=== PATIENT | female | born 1990 | race Caucasian/White ===

== ENCOUNTER → 2020-10-16 13:18 | Outpatient (CLI) | payer BC, SELFPAY ==
--- NOTE | 2020-10-16 13:19 | US_ITS ---
PROCEDURE: US TRANSVAGINAL CLINICAL INDICATION: US T/V- DUB COMPARISON: No exams were available for comparison FINDINGS: Normal size uterus measuring 9.18cm in length 5.16cm in height and 6.40cm in width but shows rather homogeneous echogenicity. The endometrial echo measures 1.3 cm and somewhat echogenic and is upper limits of normal for the secretory phase. The left ovary is normal in size and shows a dominant cyst with internal echoes measuring 1.6 x 1 point by 1.8 cm. The left ovary is normal in size and shows multiple tiny follicular cysts. There is no cul-de-sac fluid IMPRESSION: Findings as described no definite acute pathology identified Dictated by: Dr. Kirk Rojo MD 10/16/2020 15:37 Dr. Kirk Rojo MD in [place] 10/16/2020 15:37
== END ==
PROVIDERS: PCP Pediatrics; Visit Provider Obstetrics & Gynecology
DX: N93.8 Other specified abnormal uterine and vaginal bleeding (principal)
CPT/HCPCS: 76830

== ENCOUNTER → 2020-11-11 10:24 | Outpatient (CLI) | payer BC, SELFPAY ==
[2020-11-11 10:59] LABS: Basophils # 0.1 K/mm3 (0-0.2); Eosinophils # 0.1 K/mm3 (0.0-0.4); Hematocrit 41.9 % (37.0-47.0); Hemoglobin 13.3 g/dL (12.2-16.2); Lymphocytes # 2.5 K/mm3 (0.7-4.5); Lymphocytes % 39.9 % (10-50); Mean Corpuscular HGB Conc 31.8 g/dL (31.8-35.4); Mean Corpuscular Hemoglobin 27.8 pg (27.0-31.2); Mean Corpuscular Volume 87.4 fl (81-99); Mean Platelet Volume 8.3 fl (7.4-10.4); Monocytes # 0.4 K/mm3 (0.1-1.0); Monocytes % 6.5 % (1.7-9.3); Neutrophils # 3.2 K/mm3 (1.8-7.8); Neutrophils % 50.6 % (37.0-80.0); Platelet Count 264 K/mm3 (142-424); Red Blood Count 4.79 M/mm3 (4.20-5.40); Red Cell Distribution Width 13.5 % (11.5-17.5); White Blood Count 6.4 K/mm3 (4.8-10.8)
[2020-11-11 11:11] LABS: HCG Qualitative, Serum Negative (Negative)
[2020-11-11 11:12] LABS: Chloride 106 mmol/L (98-107); Potassium 3.9 mmoL/L (3.5-5.1); Sodium 139 mmol/L (136-145)
[2020-11-11 11:14] LABS: Alanine Aminotransferase 15 U/L (12-78); Aspartate Amino Transferase 21 U/L (14-36); Blood Urea Nitrogen 11 mg/dl (7-17); Estimated Glomerular Filt Rate 97 ml/min (>60); GFR (African American) 117 ML/MIN (>60)
[2020-11-11 11:15] LABS: Albumin Level 4.3 g/dl (3.5-5.0); Albumin/Globulin Ratio 1.4 (1.1-1.8); Alkaline Phosphatase 82 U/L (38-126); Anion Gap 11.9 mEq/L (5-15); Bilirubin,Total 0.6 mg/dl (0.2-1.3); Calcium 9.5 mg/dl (8.4-10.2); Carbon Dioxide 25 mmol/L (22.0-30.0); Globulin 3.1 g/dL (1.3-3.2); Glucose 93 mg/dl (74-100); Total Protein,Serum 7.4 g/dl (6.3-8.2)
[2020-11-11 11:33] LABS: Coronavirus 19 IgG Antibody Negative (Negative); Coronavirus 19 IgM Antibody Negative (Negative)
== END ==
PROVIDERS: Visit Provider Obstetrics & Gynecology
DX: Z01.812 Encounter for preprocedural laboratory examination (principal); Z20.822 Contact with and (suspected) exposure to COVID-19; N92.0 Excessive and frequent menstruation with regular cycle; N93.8 Other specified abnormal uterine and vaginal bleeding
CPT/HCPCS: 36415; 80053; 84703; 85025; 86328

== ENCOUNTER 2020-11-14 06:25 | Day surgery (SDC) | payer BC, SELFPAY ==
[2020-11-08 15:18] VITALS: BMI 40.8
[2020-11-14] VITALS (10 sets, daily range): BP systolic 109–142; BP diastolic 59–89; PULSE 63–93; RESP 16–18; TEMP 36.1–37.4; O2SAT 95–100
--- NOTE | 2020-11-14 07:51 | P.PN_ITS ---
[facility] Anesthesia Checklist - Patient Identification Patient Identification: Arm Band - Structural Data Admitted From: Home Planned Operative Procedure/s: Hysteroscopy, D&C, Novasure Ablation Consent for Planned Operative Procedure(s) Verified: Yes Verified Documents: Surgical Consent, History and Physical - NPO Status Verified Time NPO: 00:00 - Additional verifications Anesthesia Reactions: No Hx Blood Transfusions: No Blood Transfusion Reaction: No - Airway Assessment C-Spine Mobility Assessed: Yes (mp2) TMJ Mobility Assessed: Yes Dentition: Good Dentition - Neurological Assessment Level of Consciousness: Awake, Alert - Anesthesia Plan Anesthesia Risk discussed: Yes Anesthesia Plan: Verified ASA Class: III Anesthesia Type: General [facility] History I have reviewed the patient's past medical history: Yes Medical History: Denies:: Cancer, Diabetes Mellitus Type 1, Diabetes Mellitus Type 2, Internal Pacemaker, MRSA, Seizures *Have you ever received a pneumonia vaccine?: No *Have you received a flu vaccine this season?: No Other Medical History: Denies: Blood Transfusion Reaction Anesthesia experience/problems:: nac Laterality Cases: Left: Other Other Surgeries: Yes: Other. No: Pacemaker Amputation: No Fractures: Yes (wrist) - *Social History Last grade of school completed: High school graduate Smoking Status: Never smoker Alcohol Intake: never Substance Use Type: denies use *Occupational Status:: employed Housing: house Household Members: spouse *Travel in the last 8 weeks: None Family Hx:: No significant family history
--- NOTE | 2020-11-14 09:58 | P.OP_ITS ---
Date of procedure: 11/14/20 Pre-op Diagnosis:: heavy menstrual bleeding dysfunctional uterine bleeding severe dysmenorrhea Post-op Diagnosis:: same Procedure performed:: Diagnostic hysteroscopy Novasure endometrial ablation Surgeon:: Unique Guzman MD REVENUE CYCLE SPECIALIST:: Haresh Vásquez Anesthesia: GETA Estimated blood loss (mL): 5 Operative findings:: grossly normal uterine cavity no fibroids or polyps visualized Operative note:: The patient was taken to the operating room and general anesthesia was administered. She was prepped/draped in lithotomy position. The anterior lip of the cervix was grasped with a single tooth tenaculum and the cervix was dilated with Kelly dilators of serially increasing size until the external os was able to accomodate the hysteroscope. The hysteroscope was advanced through the cervix and into the uterine cavity, which was distended with LR. Once the uterus was sufficiently distended, the cavity was evaluated and no polyps or fibroids were visualized. The hysteroscope was removed from the uterus; the uterine cavity sounded to a length of 5.5cm with a cervical length of 3.5cm. The Novasure was inserted through the cervix and expanded to fit the width of the uterus, with a width of 4.6cm. After a successful cavity assessment, the device was deployed and the endometrial ablation was completed in 85seconds. Once the device had turned off, the Novasure was removed from the uterus and the hysteroscope was reinserted into the uterine cavity. The cavity appeared diffusely cauterized. The hysteroscope was removed from the uterus and all instruments removed from the vagina. The tenaculum site was hemostatic. All sponge/lap/needle/instrument counts correct x2. Total EBL: 5 cc. The patient was taken out of lithotomy position, extubated and taken to the PACU in stable condition. Condition: stable Disposition: PACU Specimens:: none Complications:: none
--- NOTE | 2020-11-14 10:01 | P.PN_ITS ---
[facility] Anesthesia Record Part I Intake, IV Amount: 800 Estimated blood loss (mL): 5 Urine output (mL): 50 Blood Products used (#): none Blood Pressure: 142/89 SaO2: 96 Pulse Rate: 89 Respiratory Rate: 16 Temperature: 99.3 F Patient is:: Drowsy, Stable Stable to PACU at:: 09:55
--- NOTE | 2020-11-14 11:28 | P.PN_ITS ---
[facility] Anesthesia Record Part II Discharge Time: 10:25 Destination: Surgical Day Care (OP Surgery) PACU nurse assessment reviewed?: Yes Patient Condition:: Good Anesthesia Complications:: None Swallowing reflex intact?: Yes Cyanosis?: No Blood Pressure: 127/73 Pulse Rate: 77 Temperature: 97 F Mental Status: Alert & Oriented Pain level:: 5 Nausea and/or vomitting:: None Intake, IV Amount: 0
== END 2020-11-14 10:57 | disposition home or self-care (01) ==
LOC: OR 06:27
PROVIDERS: PCP Pediatrics; Visit Provider Obstetrics & Gynecology
PROC: 0U5B8ZZ Destruction of Endometrium, Via Natural or Artificial Opening Endoscopic (ICD-10-PCS; CPT 58563; principal; 2020-11-14 08:15)
DX: N92.0 Excessive and frequent menstruation with regular cycle (principal); N94.6 Dysmenorrhea, unspecified; R93.89 Abnormal findings on diagnostic imaging of other specified body structures; Z98.51 Tubal ligation status
CPT/HCPCS: 58563; 96374; J2405

== ENCOUNTER 2021-01-06 20:41 | Emergency (ER) | payer BC, SELFPAY ==
[2021-01-06 21:00] VITALS: BP 143/89; PULSE 86; RESP 21; TEMP 37; O2SAT 100; BMI 41.8
--- NOTE | 2021-01-06 21:17 | HMH.EDUTC ---
[facility] Disposition Clinical Impression: Allergic reaction Qualifiers: Encounter type: initial encounter Qualified Code(s): T78.40XA - Allergy, unspecified, initial encounter Disposition: Home, Self-Care Condition on Discharge: Good Instructions: DI for General Allergic Reactions, Diphenhydramine Additional Instructions: Look around to see if something has changed that you may have come into contact with and may be reacting too Over the counter Benadryl may help with itching and rash Follow up with your Family Doctor if you continue to have reactions Follow up with Dr Hallman for allergy testing if symptoms persist or return Straight to ER if any life threatening symptoms Prescriptions: methylPREDNISolone [Medrol 4mg tab] 4 mg PO DIRECTED #21 tab Transmission Status: Pending to Clinic Pharm[facility] Referrals: Guillermo Ibrahim [Primary Care Provider] - As needed Medical Decision Making - Kristopher Inquiry Pt receiving controlled substance: No Kristopher was queried for this patient: No Vital Signs: 01/06/21 21:00 Temperature 98.6 F Temperature Source Oral Pulse Rate [Right Brachial] 86 Respiratory Rate 21 Blood Pressure [Right Arm] 143/89 H Blood Pressure Mean [Right Arm] 107 Blood Pressure Source [Right Arm] Automatic Cuff Blood Pressure Position [Right Arm] Sitting 02 Sat by Pulse Oximetry 100 Oxygen Delivery Method Room Air Orders (Tests/Meds): ED MEDICATIONS Discontinued Medications Generic Name Dose Route Start Last Admin Trade Name Nikki PRN Reason Stop Dose Admin Diphenhydramine HCl 25 mg 01/06/21 21:17 01/06/21 21:30 Diphenhydramine 50mg/Ml Vial IM 01/06/21 21:18 25 mg ONCE ONE Administration Famotidine 20 mg 01/06/21 21:17 01/06/21 21:30 Famotidine 20mg Tablet PO 01/06/21 21:18 20 mg ONCE ONE Administration Loratadine 10 mg 01/06/21 21:17 01/06/21 21:30 Loratadine 10mg Tablet PO 01/06/21 21:18 10 mg ONCE ONE Administration Methylprednisolone Sodium Succinate 125 mg 01/06/21 21:17 01/06/21 21:30 Methylprednisolone Sod Succ 125mg Vial IM 01/06/21 21:18 125 mg ONCE ONE Administration Medical Decision Narrative: Rash on chest and wrist improving patient states that she is not itching like she was and rash is improving [facility] HPI - General Stated complaint: hives, knots, and swelling Time Seen by Provider: 01/06/21 21:17 Mode of Arrival: Ambulatory Source of Information: Patient Limitations: No Limitations Description of Symptoms (Recalled from Triage Doc. by RN): PATIENT C/O RASH/ALLERGIC REACTION. UNKNOWN CAUSE HEENT Symptoms (Recalled from RN notes): No Resp Symptoms (Recalled from RN notes): No Skin Symptoms (Recalled from RN notes): Yes MS Symptoms (Recalled from RN notes): No Functional Status (Recalled from RN notes): WNL - History of Present Illness Provider Complaint: Patient states that she is having an allergic reaction to something and unsure what State that she thinks it may be her new conditioner State that this morning she woke up with rash on her face, neck and arms State that she took Bendadryl and it helped some but tonight she started itching again and noticed rash on her wrist States feels like there is a knot in the bottom of her foot and not sure if that is part of her reaction - Related Data Home Medications Medication Instructions Recorded Confirmed phentermine 37.5 mg tablet 37.5 mg PO DAILY 10/23/20 01/06/21 buPROPion HCL [Bupropion HCl Sr] 150 mg PO DAILY 01/06/21 01/06/21 Previous Rx's Medication Instructions Recorded methylPREDNISolone [Medrol 4mg 4 mg PO DIRECTED #21 tab 01/06/21 tab] Allergies Allergy/AdvReac Type Severity Reaction Status Date / Time No Known Allergies Allergy Verified 12/18/20 09:41 - Worker's Comp Is this a Worker's Comp case?: No [facility] History - Hepatitis A Screen Drug use history?: No High risk sexual behaviors?: No History of sexually transmitted infectio
[2021-01-06 21:41] VITALS: BP 143/89; PULSE 86; RESP 21; TEMP 37; O2SAT 100
== END 2021-01-06 21:49 | disposition home or self-care (01) ==
PROVIDERS: Emergency Provider Nurse Practitioner; PCP Pediatrics
DX: L50.0 Allergic urticaria (principal)
CPT/HCPCS: 96372; 99202; G0463

== ENCOUNTER 2021-04-30 12:35 | Emergency (ER) | payer BC, SELFPAY ==
[2021-04-30 12:40] VITALS: BP 117/63; PULSE 91; RESP 20; TEMP 36.9; O2SAT 98; BMI 42.8
[2021-04-30 13:09] LABS: Apearance,Urine Clear (Clear); Bilirubin,Urine Negative (Negative); Blood, Urine 2+ (Negative); Color,Urine Yellow (Yellow); Glucose,Urine (UA) Negative (Negative); Ketones,Urine Negative (Negative); Protein,Urine 1+ (Negative); Specific Gravity, Urine 1.025 (1.005-1.030); UTC Leukocyte Esterase,Urine 2+ (Negative); UTC Nitrate,Urine Positive (Negative); Urobilinogen,Urine 0.2 EU/dl (0.2)
--- NOTE | 2021-04-30 13:44 | HMH.EDUTC ---
[facility] Disposition Clinical Impression: UTI (urinary tract infection) Qualifiers: Urinary tract infection type: site unspecified Hematuria presence: with hematuria Qualified Code(s): N39.0 - Urinary tract infection, site not specified Disposition: Home, Self-Care Condition on Discharge: Good Instructions: Urinary Tract Infection, DI for Urinary Tract Infection (UTI) Additional Instructions: Drink plenty of fluids. Take tylenol or ibuprofen for pain or fever. Take the medications as directed. Follow up with your regular doctor. GO TO THE ER FOR ANY WORSENING SYMPTOMS The pyridium will make your urine turn orange, this is an expected side effect. It will stain your clothes if it comes into contact with them. Prescriptions: Sulfamethoxazole/Trimethoprim [Bactrim DS tablet] 1 each PO BID 7 Days #14 tab Transmission Status: Received by [facility] Phenazopyridine HCl [Pyridium 200mg Tablet] 200 pow PO TID #6 tab Transmission Status: Received by [facility] Referrals: Guillermo Ibrahim [Primary Care Provider] - Time of Disposition: 13:46 Medical Decision Making - Medical Records Medical records reviewed: No: I reviewed the patient's medical records. - Kristopher Inquiry Pt receiving controlled substance: No Vital Signs: 04/30/21 12:40 04/30/21 13:49 Temperature 98.4 F 98.4 F Temperature Source Oral Pulse Rate 91 H Pulse Rate [Right Brachial] 91 H Respiratory Rate 20 20 Blood Pressure 117/63 Blood Pressure [Right Arm] 117/63 Blood Pressure Mean [Right Arm] 81 Blood Pressure Source [Right Arm] Automatic Cuff Blood Pressure Position [Right Arm] Sitting 02 Sat by Pulse Oximetry 98 Oxygen Delivery Method Room Air - Lab Data Lab results reviewed: Yes: I reviewed the patient's lab results. Lab Results 04/30/21 12:38: Urine Color Yellow, Urine Appearance Clear, Urine pH 6.0, Ur Specific [place] 1.025, Urine Protein 1+, Urine Glucose (UA) Negative, Urine Ketones Negative, Urine Blood 2+, Urine Nitrate Positive A, Urine Bilirubin Negative, Urine Urobilinogen 0.2, Ur Leukocyte Esterase 2+ A Orders (Tests/Meds): ORDERS Category Date Time Status Urine Culture Stat Micro 04/30/21 12:45 Results [facility] HPI - General Stated complaint: Poss UTI Time Seen by Provider: 04/30/21 12:55 Mode of Arrival: Ambulatory Source of Information: Patient Limitations: No Limitations Description of Symptoms (Recalled from Triage Doc. by RN): PATIENT C/O FREQUENT AND PAINFUL URINATION SINCE FRIDAY HEENT Symptoms (Recalled from RN notes): No Resp Symptoms (Recalled from RN notes): No Skin Symptoms (Recalled from RN notes): No MS Symptoms (Recalled from RN notes): No Functional Status (Recalled from RN notes): WNL - History of Present Illness Provider Complaint: She states that she has had burning with urination and low back pain for the past 2 days. She denies any fever/chills. - Related Data Home Medications Medication Instructions Recorded Confirmed Escitalopram Oxalate [Lexapro] 20 mg PO DAILY 04/30/21 04/30/21 Previous Rx's Medication Instructions Recorded Phenazopyridine HCl [Pyridium 200 pow PO TID #6 tab 04/30/21 200mg Tablet] Sulfamethoxazole/Trimethoprim 1 each PO BID 7 Days #14 tab 04/30/21 [Bactrim DS tablet] Allergies Allergy/AdvReac Type Severity Reaction Status Date / Time bupropion Allergy Severe Hives Verified 01/08/21 16:34 - Worker's Comp Is this a Worker's Comp case?: No [facility] History - Hepatitis A Screen Drug use history?: No High risk sexual behaviors?: No History of sexually transmitted infection?: No Currently employed?: No Childcare worker?: No Do you have indoor plumbing?: Yes Do you have electricity?: Yes Attestation statement:: This patient has been screened for Hepatitis A risk factors. I have reviewed the patient's past medical history: Yes Medical History: Denies:: Cancer, Diabetes Me
[2021-04-30 13:49] VITALS: BP 117/63; PULSE 91; RESP 20; TEMP 36.9; O2SAT 98
== END 2021-04-30 13:55 | disposition home or self-care (01) ==
PROVIDERS: Emergency Provider Nurse Practitioner Family; PCP Pediatrics
DX: N30.00 Acute cystitis without hematuria (principal)
CPT/HCPCS: 81003; 87086; 87088; 87186; 99202; G0463

== ENCOUNTER 2021-06-21 15:11 | Emergency (ER) | payer BC, SELFPAY ==
[2021-06-21 16:30] VITALS: BP 134/68; PULSE 91; RESP 20; TEMP 36.8; O2SAT 100; BMI 45.8
--- NOTE | 2021-06-21 16:57 | HMH.EDUTC ---
[facility] Disposition Clinical Impression: Exposure to COVID-19 virus, Viral syndrome Disposition: Home, Self-Care Condition on Discharge: Good Instructions: DI for COVID-19 (Suspected or Confirmed ), Preventing the Spread of Coronavirus Discharge Instructions Additional Instructions: Drink plenty of fluids. Take tylenol or ibuprofen for pain or fever. Take the medications as directed. Follow up with your regular doctor. GO TO THE ER FOR ANY WORSENING SYMPTOMS Quarantine until you know the results of your covid-19 test. If it is positive, the health department should call you and give you further instructions about your length of Quarantine and other things. Notify your school or workplace of your results and follow their instructions regarding return to work/school. Prescriptions: Brompheniramine/Pseudoephed/Dm [Bromfed Dm Cough Syrup] 5 ml PO Q6HP PRN #240 ml PRN Reason: Cough Transmission Status: [facility] Ondansetron [Zofran 4mg ODT] 4 mg PO Q8HP PRN #12 tab PRN Reason: Nausea Transmission Status: [facility] Referrals: Guillermo Ibrahim [Primary Care Provider] - Forms: Work/School Release Time of Disposition: 17:08 Medical Decision Making - Medical Records Medical records reviewed: No: I reviewed the patient's medical records. - Kristopher Inquiry Pt receiving controlled substance: No Vital Signs: 06/21/21 16:30 06/21/21 17:03 Temperature 98.2 F 98.2 F Temperature Source Oral Pulse Rate 91 H Pulse Rate [Right Brachial] 91 H Respiratory Rate 20 20 Blood Pressure 134/68 Blood Pressure [Right Arm] 134/68 Blood Pressure Mean [Right Arm] 90 Blood Pressure Source [Right Arm] Automatic Cuff Blood Pressure Position [Right Arm] Sitting 02 Sat by Pulse Oximetry 100 Oxygen Delivery Method Room Air [facility] HPI - General Stated complaint: covid test Time Seen by Provider: 06/21/21 16:57 Mode of Arrival: Ambulatory Source of Information: Patient Limitations: No Limitations Description of Symptoms (Recalled from Triage Doc. by RN): PATIENT C/O COUGH, CHILLS, HEADACHE, BODY ACHES THAT STARTED TODAY. RECENTLY EXPOSED TO COVID AT WORK HEENT Symptoms (Recalled from RN notes): Yes Resp Symptoms (Recalled from RN notes): No Skin Symptoms (Recalled from RN notes): No MS Symptoms (Recalled from RN notes): No Functional Status (Recalled from RN notes): WNL - History of Present Illness Provider Complaint: She states that she started feeling bad this morning. She has body aches, chilling and low grade fever. She was exposed to Covid-19 by her coworker having covid. - Related Data Home Medications Medication Instructions Recorded Confirmed Escitalopram Oxalate [Lexapro] 20 mg PO DAILY 04/30/21 04/30/21 Previous Rx's Medication Instructions Recorded Phenazopyridine HCl [Pyridium 200 pow PO TID #6 tab 04/30/21 200mg Tablet] Sulfamethoxazole/Trimethoprim 1 each PO BID 7 Days #14 tab 04/30/21 [Bactrim DS tablet] Brompheniramine/Pseudoephed/Dm 5 ml PO Q6HP PRN #240 ml 06/21/21 [Bromfed Dm Cough Syrup] Ondansetron [Zofran 4mg ODT] 4 mg PO Q8HP PRN #12 tab 06/21/21 Allergies Allergy/AdvReac Type Severity Reaction Status Date / Time bupropion Allergy Severe Hives Verified 01/08/21 16:34 - Worker's Comp Is this a Worker's Comp case?: No [facility] History - Hepatitis A Screen Drug use history?: No High risk sexual behaviors?: No History of sexually transmitted infection?: No Currently employed?: No Childcare worker?: No Do you have indoor plumbing?: Yes Do you have electricity?: Yes Attestation statement:: This patient has been screened for Hepatitis A risk factors. I have reviewed the patient's past medical history: Yes Medical History: Denies:: Cancer, Diabetes Mellitus Type 1, Diabetes Mellitus Type 2, Internal Pacemaker, MRSA, Seizures Other Medical History: Denies: Blood Transfusion [place]
[2021-06-21 17:03] VITALS: BP 134/68; PULSE 91; RESP 20; TEMP 36.8; O2SAT 100
--- NOTE | 2021-06-22 09:52 | PC.NURSE ---
notified pt of positive covid test result
== END 2021-06-21 17:17 | disposition home or self-care (01) ==
PROVIDERS: Emergency Provider Nurse Practitioner Family; PCP Pediatrics
DX: U07.1 COVID-19 (principal)
CPT/HCPCS: 99202; G0463; U0003

== ENCOUNTER 2021-07-15 09:19 | Emergency (ER) | payer BC, SELFPAY ==
[2021-07-15 09:20] VITALS: BP 114/47; PULSE 69; RESP 20; TEMP 36.9; O2SAT 97; BMI 45.0
[2021-07-15 09:25] VITALS: BMI 45.1
--- NOTE | 2021-07-15 09:26 | XR_ITS ---
PROCEDURE INFORMATION: Exam: XR Right Ankle Exam date and time: 07/15/2021 9:26 AM Age: 31 years old Clinical indication: Pain and injury or trauma; Sprain or strain and swelling (edema); Right; Injury date: ; Injury details: Twisted her ankle; Patient HX: Injury twisted ankle in er[facility] for treatement-- swollen and can not walk on it TECHNIQUE: Imaging protocol: XR Right ankle. Views: 3 or more views. COMPARISON: No relevant prior studies available. FINDINGS: Bones/joints: Normal. There is no evidence of acute fracture or malalignment. Normal alignment of the ankle mortise. Soft tissues: Diffuse soft tissue edema. IMPRESSION: 1. There is no evidence of acute fracture or malalignment. 2. Diffuse soft tissue edema.
[2021-07-15 10:40] VITALS: BP 114/47; PULSE 69; RESP 20; TEMP 36.9; O2SAT 97
--- NOTE | 2021-07-15 10:50 | HMH.EDUTC ---
[facility] Disposition Clinical Impression: Right ankle sprain Qualifiers: Encounter type: initial encounter Involved ligament of ankle: unspecified ligament Qualified Code(s): S93.401A - Sprain of unspecified ligament of right ankle, initial encounter Disposition: Home, Self-Care Condition on Discharge: Good Instructions: How to Use Crutches, DI for Ankle Sprain Additional Instructions: Rest the extremity, apply ice for 15 minutes as tolerated three or four times per day, Wear the contrears wrap for compression, Elevate the extremity as tolerated while you are resting. Take ibuprofen for pain. I sent in a prescription to your pharmacy. Follow up with Dr. Mcleod (podiatry). Sometimes there can be fractures that don't show up well on the first set of x-rays. Sometimes there are ligament or tendon injuries that don't show up on x-rays. So, you should follow up if you continue to have symptoms. I put in a referral but you need to call her office and schedule an appointment. Follow up with your regular doctor. GO TO THE ER FOR ANY WORSENING SYMPTOMS Prescriptions: Ibuprofen [Ibuprofen 600mg Tablet] 600 mg PO Q6HP PRN #30 tab PRN Reason: Mild Pain Transmission Status: Received by [facility] Referrals: Guillermo Ibrahim [Primary Care Provider] - Forms: Work/School Release Time of Disposition: 10:57 Medical Decision Making - Medical Records Medical records reviewed: No: I reviewed the patient's medical records. - Kristopher Inquiry Pt receiving controlled substance: No Vital Signs: 07/15/21 09:20 07/15/21 10:40 Temperature 98.4 F 98.4 F Temperature Source Oral Pulse Rate 69 Pulse Rate [Right Brachial] 69 Respiratory Rate 20 20 Blood Pressure 114/47 L Blood Pressure [Right Arm] 114/47 L Blood Pressure Mean [Right Arm] 69 Blood Pressure Source [Right Arm] Automatic Cuff Blood Pressure Position [Right Arm] Sitting 02 Sat by Pulse Oximetry 97 Oxygen Delivery Method Room Air - Radiology Data #1 Image(s): Ankle Image Reviewed: Yes I reviewed the patient's radiology image, Yes I have reviewed radiologist's interpretation Preliminary Findings: Normal/NAD, No Fracture Seen PROCEDURE INFORMATION: Exam: XR Right Ankle Exam date and time: 07/15/2021 9:26 AM Age: 31 years old Clinical indication: Pain and injury or trauma; Sprain or strain and swelling (edema); Right; Injury date: ; Injury details: Twisted her ankle; Patient HX: Injury twisted ankle in er/[facility] for treatement-- swollen and can not walk on it TECHNIQUE: Imaging protocol: XR Right ankle. Views: 3 or more views. COMPARISON: No relevant prior studies available. FINDINGS: Bones/joints: Normal. There is no evidence of acute fracture or malalignment. Normal alignment of the ankle mortise. Soft tissues: Diffuse soft tissue edema. IMPRESSION: 1. There is no evidence of acute fracture or malalignment. 2. Diffuse soft tissue edema. [facility] HPI - General Stated complaint: [id number] right ankle injury @ home Time Seen by Provider: 07/15/21 10:50 Mode of Arrival: Ambulatory Source of Information: Patient Limitations: No Limitations Description of Symptoms (Recalled from Triage Doc. by RN): PATIENT C/O INJURY TO RIGHT ANKLE THAT OCCURED FRIDAY MORNING. SHE STATES SHE TRIPPED OVER A DOG TOY. SHE HAS BEEN ELEVATING AND ICING IT HEENT Symptoms (Recalled from RN notes): No Resp Symptoms (Recalled from RN notes): No Skin Symptoms (Recalled from RN notes): No MS Symptoms (Recalled from RN notes): Yes Functional Status (Recalled from RN notes): WNL - History of Present Illness Provider Complaint: She states that 2 days ago, she tripped coming down her front steps. She stumbled and twisted her right ankle and then fell onto her sidewalk on her knees. She is here to have the ankle checked out. - Related Data Home Medications Medica
== END 2021-07-15 11:12 | disposition home or self-care (01) ==
PROVIDERS: Emergency Provider Nurse Practitioner Family; PCP Pediatrics
DX: W10.8XXA Fall (on) (from) other stairs and steps, initial encounter; S93.401A Sprain of unspecified ligament of right ankle, initial encounter
CPT/HCPCS: 29515; 73610; 99203; G0463

== ENCOUNTER → 2021-11-02 19:25 | Outpatient (CLI) | payer BC, SELFPAY | PROVIDERS: Visit Provider Nurse Practitioner Family | DX: Z20.822 Contact with and (suspected) exposure to COVID-19 (principal); J02.9 Acute pharyngitis, unspecified | CPT/HCPCS: C9803; U0003; U0005 ==

== ENCOUNTER → 2022-06-15 10:27 | Outpatient (CLI) | payer BC, SELFPAY ==
[2022-06-15 11:36] LABS: Hematocrit 38.7 % (37.0-47.0); Mean Corpuscular HGB Conc 30.9 g/dL (31.8-35.4); Mean Corpuscular Hemoglobin 28.1 pg (27.0-31.2); Mean Corpuscular Volume 91.1 fl (81-99); Platelet Count 214 K/mm3 (142-424); Red Blood Count 4.25 M/mm3 (4.20-5.40); Red Cell Distribution Width 13.9 % (11.5-17.5); White Blood Count 5.4 K/mm3 (4.8-10.8)
[2022-06-15 11:38] LABS: Hemoglobin A1C 5.1 % (4.0-6.0)
[2022-06-15 12:15] LABS: Alanine Aminotransferase 62 U/L (12-78); Albumin Level 3.4 g/dl (3.5-5.0); Albumin/Globulin Ratio 1.4 (1.1-1.8); Alkaline Phosphatase 128 U/L (38-126); Anion Gap 8.8 mEq/L (5-15); Aspartate Amino Transferase 48 U/L (14-36); Bilirubin,Total 0.3 mg/dl (0.2-1.3); Blood Urea Nitrogen 5 mg/dl (7-17); Calcium 8.8 mg/dl (8.4-10.2); Carbon Dioxide 25 mmol/L (22.0-30.0); Chloride 110 mmol/L (98-107); Chol/HDL Ratio 3.9 (1-3.5); Cholesterol 116 mg/dl (140-200); Estimated Glomerular Filt Rate 141 ml/min (>60); GFR (African American) 171 ML/MIN (>60); Globulin 2.5 g/dL (1.3-3.2); Glucose 91 mg/dl (74-100); HDL Cholesterol 30 mg/dl (40-60); Magnesium 1.5 mg/dl (1.6-2.3); Phosphorous 3.6 mg/dl (2.5-4.5); Potassium 3.8 mmoL/L (3.5-5.1); Sodium 140 mmol/L (136-145); Total Protein,Serum 5.9 g/dl (6.3-8.2); Triglycerides 71 mg/dl (30-150); VLDL Cholesterol 14 mg/dL (0-40)
[2022-06-15 12:27] LABS: Intact Parathyroid Hormone 56.5 pg/mL (7.5-53.5)
[2022-06-15 12:33] LABS: 25-OH Vitamin D, Total 46.2 ng/mL (30-100)
[2022-06-15 12:45] LABS: Thyroid Stimulating Hormone 1.49 uIU/mL (0.465-4.68)
[2022-06-15 17:09] LABS: Iron 81 ug/dL (37-170)
[2022-06-15 17:45] LABS: Ferritin 43.8 ng/ml (6.24-137)
[2022-06-17 15:10] LABS: Prealbumin 17 mg/dL (14-35)
[2022-06-19 01:57] LABS: Direct LDL Cholesterol 68 mg/dL (100-129)
[2022-06-19 12:42] LABS: Methylmalonic Acid 92 nmol/L (0-378)
[2022-06-20 00:07] LABS: Vitamin B1 166.6 nmol/L (66.5-200.0)
[2022-06-20 13:04] LABS: Vitamin E Alpha Tocopherol 4.6 mg/L (5.9-19.4); Vitamin E Gamma Tocopherol 1.2 mg/L (0.7-4.9)
[2022-06-20 22:23] LABS: Vitamin A 31.4 ug/dL (18.9-57.3)
== END ==
PROVIDERS: PCP Pediatrics; Visit Provider Nurse Practitioner Family
DX: I10 Essential (primary) hypertension (principal); R63.4 Abnormal weight loss; E66.01 Morbid (severe) obesity due to excess calories; Z68.43 Body mass index [BMI] 50.0-59.9, adult; Z13.21 Encounter for screening for nutritional disorder
CPT/HCPCS: 80053; 80061; 82131; 82306; 82728; 82746; 83036; 83540; 83735; 83970; 84100; 84134; 84425; 84443; 84446; 84590; 85014; 85018; 85048; 85049

== ENCOUNTER → 2022-11-27 13:22 | Outpatient (CLI) | payer BC, SELFPAY ==
[2022-11-27 14:06] LABS: Basophils # 0.1 K/mm3 (0-0.2); Basophils % 0.9 % (0.1-2.0); Eosinophils # 0.1 K/mm3 (0.0-0.4); Eosinophils % 2.3 % (0.1-12.0); Hematocrit 40.3 % (37.0-47.0); Lymphocytes # 2.3 K/mm3 (0.7-4.5); Lymphocytes % 36.4 % (10-50); Mean Corpuscular HGB Conc 32.3 g/dL (31.8-35.4); Mean Corpuscular Hemoglobin 28.8 pg (27.0-31.2); Mean Corpuscular Volume 89.1 fl (81-99); Mean Platelet Volume 9.1 fl (7.4-10.4); Monocytes # 0.4 K/mm3 (0.1-1.0); Monocytes % 6.1 % (1.7-9.3); Neutrophils # 3.4 K/mm3 (1.8-7.8); Neutrophils % 54.2 % (37.0-80.0); Platelet Count 245 K/mm3 (142-424); Red Blood Count 4.52 M/mm3 (4.20-5.40); Red Cell Distribution Width 12.8 % (11.5-17.5); White Blood Count 6.2 K/mm3 (4.8-10.8)
[2022-11-27 16:56] LABS: Alanine Aminotransferase 34 U/L (12-78); Albumin Level 3.7 g/dl (3.5-5.0); Albumin/Globulin Ratio 1.5 (1.1-1.8); Alkaline Phosphatase 114 U/L (38-126); Anion Gap 10.2 mEq/L (5-15); Aspartate Amino Transferase 34 U/L (14-36); Bilirubin,Total 0.5 mg/dl (0.2-1.3); Blood Urea Nitrogen 11 mg/dl (7-17); Calcium 8.6 mg/dl (8.4-10.2); Carbon Dioxide 25 mmol/L (22.0-30.0); Chloride 109 mmol/L (98-107); Chol/HDL Ratio 3.1 (1-3.5); Cholesterol 122 mg/dl (140-200); Estimated Glomerular Filt Rate 141 ml/min (>60); GFR (African American) 171 ML/MIN (>60); Globulin 2.5 g/dL (1.3-3.2); Glucose 87 mg/dl (74-100); HDL Cholesterol 39 mg/dl (40-60); Potassium 4.2 mmoL/L (3.5-5.1); Sodium 140 mmol/L (136-145); Total Protein,Serum 6.2 g/dl (6.3-8.2); Triglycerides 90 mg/dl (30-150); VLDL Cholesterol 18 mg/dL (0-40)
[2022-11-27 17:28] LABS: 25-OH Vitamin D, Total 44.9 ng/mL (30-100)
[2022-11-27 17:32] LABS: Direct LDL Cholesterol 68.88 mg/dL (100-129); Total Iron Binding Capacity 365 ug/dL (265-497)
[2022-11-27 21:42] LABS: Iron 95 ug/dL (37-170)
[2022-11-27 23:23] LABS: Ferritin 48.3 ng/ml (6.24-137)
[2022-11-29 09:29] LABS: FSH 2.7 mIU/mL (.); LH 6.9 mIU/mL (.); Progesterone 12.4 ng/mL (.)
[2022-11-29 21:04] LABS: Vitamin B1 166.2 nmol/L (66.5-200.0)
[2022-11-30 21:20] LABS: Vitamin E Alpha Tocopherol 5.9 mg/L (5.9-19.4); Vitamin E Gamma Tocopherol 1.4 mg/L (0.7-4.9)
[2022-12-02 22:08] LABS: Methylmalonic Acid 107 nmol/L (0-378)
[2022-12-06 00:09] LABS: Vitamin A 38.6 ug/dL (18.9-57.3)
== END ==
PROVIDERS: PCP Nurse Practitioner Family; Visit Provider Obstetrics & Gynecology
DX: R68.82 Decreased libido (principal); E66.9 Obesity, unspecified; Z68.41 Body mass index [BMI] 40.0-44.9, adult
CPT/HCPCS: 36415; 80053; 80061; 82131; 82306; 82670; 82728; 82746; 83001; 83002; 83036; 83540; 83550; 84144; 84425; 84446; 84590; 85025

== ENCOUNTER 2023-01-29 13:49 | Emergency (ER) | payer BC, SELFPAY ==
[2023-01-29 14:15] VITALS: BP 103/68; PULSE 73; RESP 20; TEMP 36.9; O2SAT 98; BMI 40.8
--- NOTE | 2023-01-29 14:24 | EXP.UTC ---
Discharge Plan Disposition Patient Disposition: Home, Self-Care Condition: Good Prescriptions Prescriptions: New phenazopyridine [Pyridium] 200 mg tablet 200 mg PO Q8H 2 Days Qty: 6 0RF ciprofloxacin HCl [Cipro] 500 mg tablet 500 mg PO BID 7 Days Qty: 14 0RF ondansetron 4 mg Tablet,Disintegrating 4 mg PO Q8H PRN (Reason: Nausea) Qty: 12 0RF No Action multivitamin Tablet 1 tab PO DAILY escitalopram oxalate 20 MG tablet 20 mg PO DAILY Referrals Follow up/Referrals: Guillermo Ibrahim [Primary Care Provider] - See instructions Activity Restrictions/Add. Instructions Additional Instructions/Restrictions: Drink plenty of fluids. Take tylenol or ibuprofen for pain or fever. Take the medications as directed. Follow up with your regular doctor. GO TO THE ER FOR ANY WORSENING SYMPTOMS The pyridium will make your urine turn orange, this is an expected side effect. It will stain your clothes if it comes into contact with them. We will culture the urine. That will tell what bacteria is causing your infection and which antibiotics will treat it best. Sometimes the first antibiotic we prescribe turns out to not work against different bacteria. So, make sure you follow up within 3 days if you are not getting better. Clinical Impressions Clinical Impression: UTI (urinary tract infection) Stand Alone Forms Stand Alone Forms: Work/School Release Instructions Patient Instructions: Urine Culture, DI for Urinary Tract Infection (UTI), Ondansetron, Phenazopyridine Discharge ED Provider: Dionicio Nelson [facility] General Stated complaint: Possible UTI Time Seen by Provider: 01/29/23 14:17 History of Present Illness Provider Complaint: She states that for the past 2 days she has had low back pain, dysuria, frequency and urgency. Related Data Home Medications Medication Instructions Recorded Confirmed escitalopram oxalate 20 mg tablet 20 mg PO DAILY Depression 04/30/21 01/29/23 multivitamin 1 tab PO DAILY Supplement 11/21/22 01/29/23 Previous Rx's Medication Instructions Recorded ciprofloxacin HCl 500 mg tablet 500 mg PO BID 7 days #14 tabs 01/29/23 (Cipro) ondansetron 4 mg disintegrating 4 mg PO Q8H PRN Nausea #12 tabs 01/29/23 tablet phenazopyridine 200 mg tablet 200 mg PO Q8H 2 days #6 tabs 01/29/23 (Pyridium) Allergies Allergy/AdvReac Type Severity Reaction Status Date / Time bupropion Allergy Severe Hives Verified 11/21/22 14:44 [facility] Disclaimer: The information contained in this section may have been updated after the patient was seen, as this information can be updated by other users. Surgical History H/O gastric sleeve History of endometrial ablation History of tubal ligation Family History Other Alcoholism Asthma Cancer FHx: mental illness Family history non-contributory Heart attack Hyperlipidemia Hypertension Stroke Social History Smoking Status: Never smoker second hand exposure: No alcohol intake: never substance use type: denies use current occupational status: employed Travel in the last 8 weeks: None household members: spouse housing: house current occupation: [employer] current occupational exposures/hazards: No caffeine: Yes ROS Obtained: Yes All systems reviewed & no additional complaints except as documented Constitutional Constitutional: Reports system reviewed and no additional complaints, except as documented, Denies chills and Denies fever(s) Eyes Eyes: Denies eye discharge ENT Ears, Nose, Mouth, and Throat: Denies dysphagia, Denies sore throat and Denies throat swelling Cardiovascular Cardiovascular: Denies chest pain and Denies dyspnea Respiratory Respiratory: Denies chest congestion, Denies cough and Denies dysp
[2023-01-29 14:49] LABS: Apearance,Urine Cloudy (Clear); Bilirubin,Urine Negative (Negative); Blood, Urine Trace (Negative); Color,Urine Dark Yellow (Yellow); Glucose,Urine (UA) Negative (Negative); Ketones,Urine Negative (Negative); Protein,Urine 1+ (Negative); UTC Leukocyte Esterase,Urine 1+ (Negative); UTC Nitrate,Urine Negative (Negative); Urobilinogen,Urine 1 EU/dl (0.2)
[2023-01-29 14:50] VITALS: BP 103/68; PULSE 73; RESP 20; TEMP 36.9; O2SAT 98
== END 2023-01-29 14:56 | disposition home or self-care (01) ==
PROVIDERS: Emergency Provider Nurse Practitioner Family; PCP Pediatrics
DX: N39.0 Urinary tract infection, site not specified (principal); B96.29 Other Escherichia coli [E. coli] as the cause of diseases classified elsewhere
CPT/HCPCS: 81003; 87086; 87088; 87186; 99212; 99214; G0463

== ENCOUNTER 2024-10-18 19:43 | Emergency (ER) | payer BC, SELFPAY ==
[2024-10-18 19:45] VITALS: BP 137/84; PULSE 61; RESP 16; TEMP 36.6; O2SAT 98; BMI 34.0
--- NOTE | 2024-10-18 20:24 | XR_ITS ---
PROCEDURE INFORMATION: Exam: XR Left Shoulder Exam date and time: 10/18/2024 9:22 PM Age: 34 years old Clinical indication: Injury or trauma; Fall; Blunt trauma (contusions or hematomas); Shoulder; Left TECHNIQUE: Imaging protocol: Radiologic exam of the left shoulder. Views: 2 or more views. COMPARISON: CR XR SHOULDER LT MIN 2V 10/18/2024 9:22 PM FINDINGS: Bones/joints: Normal. Soft tissues: Normal. IMPRESSION: No acute findings.
--- NOTE | 2024-10-18 20:24 | PC.NURSE ---
Pt awake and alert Report received from Shannan RN Swelling and possible deformity noted in left elbow. Skin pale warm and moist. Resp full and easy. Speech clear and appropriate. at bedside. Ice pack applied.
--- NOTE | 2024-10-18 20:25 | XR_ITS ---
PROCEDURE INFORMATION: Exam: XR Left Elbow Exam date and time: 10/18/2024 9:22 PM Age: 34 years old Clinical indication: Injury or trauma; Fall; Blunt trauma (contusions or hematomas); Elbow; Left TECHNIQUE: Imaging protocol: Radiologic exam of the left elbow. Views: 3 or more views. COMPARISON: CR XR ELBOW LT MIN 3V 10/18/2024 9:22 PM FINDINGS: Bones/joints: No acute osseous injury is identified. Soft tissues: There is soft tissue swelling about the elbow with a suspected small joint effusion. IMPRESSION: There is soft tissue swelling about the elbow with a suspected small joint effusion. No osseous injury is seen. If concern for occult injury exists, CT would be suggested.
--- NOTE | 2024-10-18 20:32 | XR_ITS ---
PROCEDURE INFORMATION: Exam: XR Left Humerus Exam date and time: 10/18/2024 9:22 PM Age: 34 years old Clinical indication: Other: Lue deformity TECHNIQUE: Imaging protocol: Radiologic exam of the left humerus. Views: 2 or more views. COMPARISON: CR XR SHOULDER LT MIN 2V 10/18/2024 9:22 PM FINDINGS: Bones/joints: Normal. Soft tissues: Normal. IMPRESSION: No acute findings.
--- NOTE | 2024-10-18 20:32 | XR_ITS ---
PROCEDURE INFORMATION: Exam: XR Left Forearm Exam date and time: 10/18/2024 9:22 PM Age: 34 years old Clinical indication: Other: Deformity at elbow TECHNIQUE: Imaging protocol: Radiologic exam of the left forearm. Views: 2 views. COMPARISON: CR XR ELBOW LT MIN 3V 10/18/2024 9:22 PM FINDINGS: Bones/joints: Normal. Elbow is better evaluated on dedicated radiographs. Soft tissues: Normal. IMPRESSION: No acute findings.
--- NOTE | 2024-10-18 20:41 | ED_ITS ---
Discharge Plan Disposition Patient Disposition: Xfer Short-Term Hosp Chief Complaint: PAIN Prescriptions Prescriptions: No Action multivitamin Tablet 1 tab PO DAILY escitalopram oxalate 20 MG tablet 20 mg PO DAILY phenazopyridine [Pyridium] 200 mg tablet 200 mg PO Q8H 2 Days Qty: 6 0RF ciprofloxacin HCl [Cipro] 500 mg tablet 500 mg PO BID 7 Days Qty: 14 0RF ondansetron 4 mg Tablet,Disintegrating 4 mg PO Q8H PRN (Reason: Nausea) Qty: 12 0RF Referrals Follow up/Referrals: Guillermo Ibrahim [Primary Care Provider] - See instructions Clinical Impressions Clinical Impression: Closed fracture of condyle of left humerus Stand Alone Forms Stand Alone Forms: Transfer Record - ED Print Language Print Language: Faroese Discharge ED Provider: Chase Stein General Adult HPI <Chase Stein MD - Last Filed: 10/18/24 23:16> General Chief complaint: PAIN Stated complaint: AO 10/18/24 1845 Injury left elbow Time Seen by Provider: 10/18/24 20:19 Mode of Arrival: Wheelchair Source of Information: Patient Limitations: Physical Limitations Description of Symptoms (Recalled from ER Triage Doc. by RN): Pt presents to ED for a shoulder/elbow injury after a fall. Pt states she fell approx 3 feet off of a porch and landed on her L elbow. Pt is A&O*4. History of Present Illness HPI narrative: Please note that above description of symptoms, in this electronic medical record under categorization of recalled from ER triage doctor by RN are reflective of an initial nursing assessment, however, is not reflective of my full history and physical exam that was personally taken and clarified. Consequentially, this preceding description of symptoms, which may include the patient's categorized chief complaint in the EMR, do not reflect my personal clinical impression, and the ultimate description of history of present illness and patient stated complaints should be deferred to this section of the note. Unless stated otherwise or congruent with this section of the note, additional signs, symptoms, or incongruence should be interpreted as inaccurate with my clinical impression. Related Data Home Medications ?Medication ?Instructions ?Recorded ?Confirmed escitalopram oxalate 20 mg tablet 20 mg PO DAILY Depression 04/30/21 01/29/23 multivitamin 1 tab PO DAILY Supplement 11/21/22 01/29/23 Previous Rx's ?Medication ?Instructions ?Recorded ciprofloxacin HCl 500 mg tablet 500 mg PO BID 7 days #14 tabs 01/29/23 (Cipro) ondansetron 4 mg disintegrating 4 mg PO Q8H PRN Nausea #12 tabs 01/29/23 tablet phenazopyridine 200 mg tablet 200 mg PO Q8H 2 days #6 tabs 01/29/23 (Pyridium) Allergies Allergy/AdvReac Type Severity Reaction Status Date / Time bupropion Allergy Severe Hives Verified 11/21/22 14:44 PFS <Chase Stein MD - Last Filed: 10/18/24 23:16> [facility] Disclaimer: The information contained in this section may have been updated after the patient was seen, as this information can be updated by other users. Surgical History H/O gastric sleeve History of endometrial ablation History of tubal ligation Family History Other Alcoholism Asthma Cancer FHx: mental illness Family history non-contributory Heart attack Hyperlipidemia Hypertension Stroke Social History Smoking Status: Current every day smoker second hand exposure: No alcohol intake: never substance use type: denies use current occupational status: employed Travel in the last 8 weeks: None household members: spouse housing: house current occupation: [employer] current occupational exposures/hazards: No caffeine: Yes Have you lived/traveled outside [place] in past 30 days?: No Contact w/someone who lives/traveled outside US past 30 days?: No Exposure to someone with infectious disease in past 14 days?: No Do you have a fever (greater than 100.4 F or 38 C)?: No Have you tested positive for COVID-19: No Exposed to someone with COVID-19 in past 14 days?: No Do you have a sore throat?: No Do you have a cough?: No Do you have any weakness?: No Do you have any diarrhea?: No Are you experiencing any unusual bleeding?: No Do you have any muscle aches/pain?: No Do you have any abdominal pain?: No Are you experiencing loss of taste or smell?: No Other Medical History Have you received the Flu Vaccine for this season: No Have you received the Pneumonia Vaccine: No <Chase Stein MD - Last Filed: 10/18/24 23:16> ROS Obtained: Yes All systems reviewed & no additional complaints except as documented Physical Exam <Chase Stein MD - Last Filed: 10/18/24 23:16> General General appearance: alert and in distress (Secondary to pain) Head Head exam: atraumatic and normocephalic Eye Eye exam: Present normal appearance, PERRL and EOMI Neck Neck exam: Present normal inspection, full ROM and trachea midline Respiratory Respiratory exam: Absent respiratory distress, wheezes, stridor, accessory muscle use or prolonged expiratory phase Cardiovascular Cardiovascular exam: Present other (Pulses equal symmetric in upper and lower extremities) Abdominal Exam Abdominal exam: Present soft; Absent distention, tenderness or pulsatile mass Extremities Exam Extremities exam: Present tenderness, edema and other (There appears to be a deformity with significant swelling at the elbow. Neurovascularly intact) Neurological Exam Neurological exam: Present alert, oriented X3 and CN II-XII intact; Absent motor sensory deficit Skin Skin exam: Present warm and dry; Absent diaphoresis or erythema Medical Decision Making <Chase Stein MD - Last Filed: 10/18/24 23:16> Medical Records Medical records reviewed: Yes I reviewed the patient's medical records. Screening: Per USPSTF and CDC recommendations, given the prevalence of disease in our region, it is our hospital?s policy to screen for HIV and viral Hepatitis for all patients aged 18 and over and those with ongoing risk factors. Kristopher Inquiry Pt receiving controlled substance: No Kristopher was queried for this patient: No Vital Signs: 10/18/24 19:45 10/18/24 22:50 10/18/24 23:57 Temperature 97.9 F 98.4 F 98.4 F Temperature Source Oral Oral Oral Pulse Rate 59 L 59 L Pulse Rate [Left] 61 Respiratory Rate 16 20 20 Blood Pressure 120/49 L 120/49 L Blood Pressure [Right Arm] 137/84 Blood Pressure Mean [Right Arm] 101 Blood Pressure Source Automatic Cuff Automatic Cuff Blood Pressure Position Supine Supine 02 Sat by Pulse Oximetry 98 99 Oxygen Delivery Method Room Air Room Air Room Air Orders (Tests/Meds): ED MEDICATIONS Discontinued Medications Generic Name Dose Route Start Last Admin Trade Name Freq PRN Reason Stop Dose Admin Hydromorphone HCl 0.5 mg 10/18/24 20:32 10/18/24 20:47 Hydromorphone 2mg/Ml Syringe IV 10/18/24 20:33 0.5 mg ONCE ONE Administration Ketorolac Tromethamine 15 mg 10/18/24 20:32 10/18/24 20:47 Ketorolac 30mg/Ml Vial IV 10/18/24 20:33 15 mg ONCE ONE Administration Morphine Sulfate 4 mg 10/18/24 23:00 10/18/24 23:16 Morphine 4mg/Ml Syringe IV 10/18/24 23:01 4 mg ONCE ONE Administration Ondansetron HCl 4 mg 10/18/24 20:32 10/18/24 20:47 Ondansetron 4mg/2ml Vial IV 10/18/24 20:33 4 mg ONCE ONE Administration ORDERS Category Date Time Status CT elbow LT wo con Stat Cat Scan 10/18/24 22:58 Completed Elbow XR left mininum 3 views [XR elbow LT min 3V] Stat Exams 10/18/24 20:25 Completed Forearm XR left 2 views [XR forearm LT 2V] Stat Exams 10/18/24 20:32 Completed Humerus XR left [XR humerus LT] Stat Exams 10/18/24 20:32 Completed Shoulder XR left minimum 2 views [XR shoulder LT min 2V Exams 10/18/24 20:24 Completed ] Stat Medical Decision Narrative: 34-year-old female presenting with left upper extremity pain. She states that she was taking the trash out just for arrival fell off the side of her steps and fell a couple of steps directly onto the gravel on her left side. Was not outstretched arm, was just arm bent at her side, but she fell in such a way that her arm twisted and ended up behind her. Had immediate severe pain and came immediately to the emergency department. 10 out of 10 pain, made worse with movement. She still has sensation and motor intact wrist and digits, but s ignificant pain at the level of the elbow that radiates up to the lateral aspect of her left shoulder. History was obtained via conversation with patient. On arrival, patient hemodynamically stable, alert, oriented x4, appropriate, GCS 15, moving all extremities spontaneously, pupils equal and reactive to light. Full physical exam performed and significant for obese female limiting exam, however there does appear to be deformity at the left elbow. Tender in antecubital fossa, medially at medial epicondyle, and distal humerus. Neurovascularly intact. Differential includes fracture, dislocation, fracture dislocation, neurovascular injury, benign soft tissue injury, among others. Patient placed on continuous cardiac monitoring and continuous pulse ox with initial blood pressure 137/84, heart rate 61, saturation 98% on room air. Patient was given Zofran, Dilaudid, Toradol for symptomatic management and correction of underlying abnormalities. Workup independently interpreted and significant for no obvious acute fracture or abnormality on x-rays of the humerus, elbow, forearm. Small joint effusion, but no obvious abnormalities. Prior to read, reevaluation patient still unable to flex at the elbow. CT scan was ordered. Prior to this being performed, care handed off to oncoming physician. Patient was given 4 mg more morphine prior to handoff. [employer] disclaimer Much of this encounter note is an electronic supervisor farm equipment maintenance spoken language to printed text. Electronic supervisor farm equipment maintenance of the spoken language may permit errors. Although I have reviewed the note, some errors may still exist. <Kacey Hinds MD - Last Filed: 10/19/24 00:29> Vital Signs: 10/18/24 19:45 10/18/24 22:50 10/18/24 23:57 Temperature 97.9 F 98.4 F 98.4 F Temperature Source Oral Oral Oral Pulse Rate 59 L 59 L Pulse Rate [Left] 61 Respiratory Rate 16 20 20 Blood Pressure 120/49 L 120/49 L Blood Pressure [Right Arm] 137/84 Blood Pressure Mean [Right Arm] 101 Blood Pressure Source Automatic Cuff Automatic Cuff Blood Pressure Position Supine Supine 02 Sat by Pulse Oximetry 98 99 Oxygen Delivery Method Room Air Room Air Room Air Orders (Tests/Meds): ED MEDICATIONS Discontinued Medications Generic Name Dose Route Start Last Admin Trade Name Freq PRN Reason Stop Dose Admin Hydromorphone HCl 0.5 mg 10/18/24 20:32 10/18/24 20:47 Hydromorphone 2mg/Ml Syringe IV 10/18/24 20:33 0.5 mg ONCE ONE Administration Ketorolac Tromethamine 15 mg 10/18/24 20:32 10/18/24 20:47 Ketorolac 30mg/Ml Vial IV 10/18/24 20:33 15 mg ONCE ONE Administration Morphine Sulfate 4 mg 10/18/24 23:00 10/18/24 23:16 Morphine 4mg/Ml Syringe IV 10/18/24 23:01 4 mg ONCE ONE Administration Ondansetron HCl 4 mg 10/18/24 20:32 10/18/24 20:47 Ondansetron 4mg/2ml Vial IV 10/18/24 20:33 4 mg ONCE ONE Administration ORDERS Category Date Time Status CT elbow LT wo con Stat Cat Scan 10/18/24 22:58 Completed Elbow XR left mininum 3 views [XR elbow LT min 3V] Stat Exams 10/18/24 20:25 Completed Forearm XR left 2 views [XR forearm LT 2V] Stat Exams 10/18/24 20:32 Completed Humerus XR left [XR humerus LT] Stat Exams 10/18/24 20:32 Completed Shoulder XR left minimum 2 views [XR shoulder LT min 2V Exams 10/18/24 20:24 Completed ] Stat Medical Decision Narrative: 34-year-old female presenting with left upper extremity pain. She states that she was taking the trash out just for arrival fell off the side of her steps and fell a couple of steps directly onto the gravel on her left side. Was not outstretched arm, was just arm bent at her side, but she fell in such a way that her arm twisted and ended up behind her. Had immediate severe pain and came immediately to the emergency department. 10 out of 10 pain, made worse with movement. She still has sensation and motor intact wrist and digits, but significant pain at the level of the elbow that radiates up to the lateral aspect of her left shoulder. History was obtained via conversation with patient. On arrival, patient hemodynamically stable, alert, oriented x4, appropriate, GCS 15, moving all extremities spontaneously, pupils equal and reactive to light. Full physical exam performed and significant for obese female limiting exam, however there does appear to be deformity at the left elbow. Tender in antecubital fossa, medially at medial epicondyle, and distal humerus. Neurovascularly intact. Differential includes fracture, dislocation, fracture dislocation, neurovascular injury, benign soft tissue injury, among others. Patient placed on continuous cardiac monitoring and continuous pulse ox with initial blood pressure 137/84, heart rate 61, saturation 98% on room air. Patient was given Zofran, Dilaudid, Toradol for symptomatic management and correction of underlying abnormalities. Workup independently interpreted and significant for no obvious acute fracture or abnormality on x-rays of the humerus, elbow, forearm. Small joint effusion, but no obvious abnormalities. Prior to read, reevaluation patient still unable to flex at the elbow. CT scan was ordered. Prior to this being performed, care handed off to oncoming physician. Patient was given 4 mg more morphine prior to handoff. [employer] disclaimer Much of this encounter note is an electronic supervisor farm equipment maintenance spoken language to printed text. Electronic supervisor farm equipment maintenance of the spoken language may permit errors. Although I have reviewed the note, some errors may still exist. Hinds: Upon my assumption of care patient was stable, still having some pain in the elbow but controlled at rest. CT personally interpreted demonstrates fragments within the joint, radiology read discusses lateral humeral condyle fracture with intra-articular fragments. See radiology read for full interpretation. Patient is still having pain but is neurovascularly intact. I consulted [facility] and discussed this case with the transfer center. Due to the presence of intra-articular fragments, Dr. Valencia excepted the patient for transfer to [facility] ER. I applied a splint to the patient's left upper extremity, see procedure note for details. She was also given a sling for support. She received a dose of oral oxycodone for pain medication. She is appropriate for transfer via private vehicle at this time. Her is going to drive her. They are going directly to ER, they know not to make any stops along the way, she is to remain n.p.o. while traveling and they both understand this. Patient was transferred in stable condition. Procedures <Kacey Hinds MD - Last Filed: 10/19/24 00:29> Orthopedic Splinting/Casting Injury #1: Side: left Upper Extremity Injury Location: elbow Upper Extremity Immobilizer: posterior splint (Ortho-Glass, soft roll, Mariusz wrap used for splint. Splint personally applied and adjusted by me.) Post Cast/Splinting Neuro Status: intact and no change Post Cast/Splinting Vasc Status: intact and no change Critical Care <Chase Stein MD - Last Filed: 10/18/24 23:16> Critical Care Time Critical Care Time: No
[2024-10-18] MEDS: KETOROLAC 30MG/ML VIAL 15 MG IV (20:47)
[2024-10-18] MEDS: ONDANSETRON 4MG/2ML VIAL 4 MG IV (20:47)
[2024-10-18] MEDS: HYDROMORPHONE 2MG/ML SYRINGE 0.5 MG IV (20:47)
--- NOTE | 2024-10-18 21:25 | PC.NURSE ---
Back from xray via wheelchair
--- NOTE | 2024-10-18 21:37 | PC.NURSE ---
xray doing films at bedside
[2024-10-18 22:50] VITALS: BP 120/49; PULSE 59; RESP 20; TEMP 36.9; O2SAT 99
--- NOTE | 2024-10-18 22:58 | CT_ITS ---
PROCEDURE INFORMATION: Exam: CT Left Upper Extremity Without Contrast, Elbow Exam date and time: 10/18/2024 11:20 PM Age: 34 years old Clinical indication: Injury or trauma; Fall; Blunt trauma (contusions or hematomas); Elbow; Left; Additional info: Fall, unale to straighten, XR normal TECHNIQUE: Imaging protocol: Computed tomography of the left upper extremity without contrast. Exam focused on the elbow. Radiation optimization: All CT scans at this facility use at least one of these dose optimization techniques: automated exposure control; mA and/or kV adjustment per patient size (includes targeted exams where dose is matched to clinical indication); or iterative reconstruction. COMPARISON: 1. CR XR ELBOW LT MIN 3V 10/18/2024 9:22 PM 2. CR XR FOREARM LT 2V 10/18/2024 9:22 PM FINDINGS: Bones/joints: There is an impacted fracture of the lateral humeral condyle with small fracture fragments in the articular space. Soft tissues: There is diffuse soft tissue swelling about the elbow with a joint effusion. IMPRESSION: There is an impacted fracture of the lateral humeral condyle with small fracture fragments in the articular space.
[2024-10-18] MEDS: MORPHINE 4MG/ML SYRINGE 4 MG IV (23:16)
--- NOTE | 2024-10-18 23:16 | PC.NURSE ---
Pt to CT scan
--- NOTE | 2024-10-18 23:23 | PC.NURSE ---
Pt back from CT scan
--- NOTE | 2024-10-18 23:56 | PC.NURSE ---
Splint applied to left arm by Pt accepted to ED. Pt aware of plans to transfer her to via private vehicle
[2024-10-18 23:57] VITALS: BP 120/49; PULSE 59; RESP 20; TEMP 36.9; O2SAT 99
[2024-10-19] MEDS: OXYCODONE 5MG IMMEDIATE RELEASE TABLET 5 MG PO (00:31)
--- NOTE | 2024-10-19 00:56 | PC.NURSE ---
Pt discharged by private vehicle with instructions to go straight to ED Pt and family verbalized an understanding of these instructions.
== END 2024-10-19 00:58 | disposition short-term general hospital (02) ==
PROVIDERS: Emergency Provider Emergency Medicine; PCP Pediatrics
DX: S42.455A Nondisplaced fracture of lateral condyle of left humerus, initial encounter for closed fracture (principal); M25.522 Pain in left elbow; W17.89XA Other fall from one level to another, initial encounter; Y93.89 Activity, other specified; Y92.008 Other place in unspecified non-institutional (private) residence as the place of occurrence of the external cause
CPT/HCPCS: 73030; 73060; 73080; 73090; 73200; 96374; 96375; 99284; J1171; J1885; J2270; J2405

== ENCOUNTER 2025-09-22 09:53 | Outpatient (CLI) | payer BC, SELFPAY ==
--- OUTSIDE RECORDS SUMMARY | 2025-09-22 10:15 | XMS_ITS | Clinical Summary ---
Author Organization [facility] Address [address] [place] [address] Care Team Providers Care Public Health Director Name Role Phone Monica Ibrahim STEPHANIE Primary Care Provider [phone] Social History Tobacco Use Types Packs/Day Years Used Date Smoking Tobacco: Never Assessed Abuse Screen Answer Date Recorded Unsafe at Home or Work/School Not on file Feels Threatened by Someone? Not on file 08/2023 Does Anyone Keep You from Co ntacting Others or Doint Things Outside the Home? Not on file 07/30/2023 Physical Sign of Abuse Present Not on file 1 Housing Stability Answer Date Recorded Current Living Arrangements Not on file 07/20 Potentially Unsafe Housing Conditions Not on chase e 07/30/2023 Family and Community Support Answer Lm e Recorded Help with Day-to-Day Activities Not on file 07/30/2023 Lonely or Isolated Not on file 07/30/2023 Employment Answer Date Recorded Do you want help finding or keeping work or a vane b? Not on file 07/30/2023 Disabilities Answer Date Recorded Concentrating, Remembering, or Making Decisions Difficulty Not on file 07/30/2023 Doing Errands Independently Difficulty Not on fi le 07/30/2023 Education Answer Date Recorded Help with school or training? Not on file Preferred Language Not on file 07/30/2023 Comments Unknown Sex and Gender Information Value Date Recorded Sex Assigned at Not on file Legal Sex Female 12:11 PM EDT Gender Identity Not on file Sexual Orientation Not on file Plan of Treatment Health Maintenance Due Date Last Done Comments ANNUAL PHYSICAL 1988 Annual Gynecologic Pelvic an d Breast Exam 1988 HEPATITIS C SCREENING 1988 TDAP/TD VACCINES (1 - Tdap) 2007 INFLUENZA VACCINE 05/20/2025 Pneumococcal Vaccine 0-49 Aged Out No longer eligible based on patient's age to complete this topic Insurance [facility] PPO Care Teams Public Health Director Relationship Specialty Start Date End Date Monica Ibrahim APRN [address] [place] [address] PCP - General Nurse Practitioner 08/02/25
[2025-09-23 08:16] LABS: Hep B Core Ab, Total Negative (Negative)
[2025-09-23 12:23] LABS: RPR W/RFX Titers Nonreactive (Nonreactive)
== END 2025-09-22 23:59 | disposition home or self-care (01) ==
LOC: LAB 09:55
PROVIDERS: PCP Pediatrics; Visit Provider Obstetrics & Gynecology
DX: Z00.00 Encounter for general adult medical examination without abnormal findings (principal)
CPT/HCPCS: 36415; 86592; 86704; 87389